=== PATIENT | female | born 1990 | race Two or more races ===

== ENCOUNTER → 2023-05-26 12:45 | Outpatient (REF) | payer BC, SELFPAY | LOC: HWRAD 12:45 | PROVIDERS: ATTENDING PHYSICIAN Nurse Practitioner Family | DX: N20.0 Calculus of kidney (principal) | CPT/HCPCS: 74176 ==

== ENCOUNTER → 2023-06-09 19:59 | Outpatient (REF) | payer BC, SELFPAY | LOC: MRI 19:59 | PROVIDERS: ATTENDING PHYSICIAN Nurse Practitioner Family | DX: M79.89 Other specified soft tissue disorders (principal) | CPT/HCPCS: 72197; A9575 ==